=== PATIENT | female | born 1960 | race Two or more races ===

== ENCOUNTER → 2019-01-03 | Outpatient (CLI) | payer OTHER | END | disposition home or self-care (01) | LOC: SONOGRAMA 14:10 | DX: N95.0 Postmenopausal bleeding (principal) ==

== ENCOUNTER 2019-02-21 07:25 | Outpatient (CLI) | payer OTHER ==
[~2019-02-21] VITALS: Ht 172.7 cm; Wt 108.9 kg
== END 2019-02-21 12:51 | disposition home or self-care (01) ==
LOC: OFIC 805 07:25
DX: J31.0 Chronic rhinitis (principal); R22.1 Localized swelling, mass and lump, neck; J34.2 Deviated nasal septum

== ENCOUNTER 2019-02-21 10:28 | Outpatient (CLI) | payer OTHER | END 2019-02-21 10:34 | disposition home or self-care (01) | LOC: LAB 10:28 | DX: R22.1 Localized swelling, mass and lump, neck (principal) ==

== ENCOUNTER 2019-02-21 11:50 | Outpatient (CLI) | payer OTHER | END 2019-02-21 17:00 | disposition home or self-care (01) | LOC: SONOGRAMA 11:50 | DX: R22.1 Localized swelling, mass and lump, neck (principal) ==

== ENCOUNTER 2020-10-31 05:40 | Day surgery (SDC) | payer OTHER | END 2020-10-31 10:25 | disposition home or self-care (01) | LOC: CIR.AMB 05:40 | PROVIDERS: ATTEND Obstetrics & Gynecology | DX: N84.0 Polyp of corpus uteri (principal); Z20.822 Contact with and (suspected) exposure to COVID-19 ==

== ENCOUNTER 2022-05-31 20:01 | Emergency (ER) | payer OTHER ==
[~2022-05-31] VITALS: Ht 172.7 cm; Wt 113.4 kg
== END 2022-06-01 00:34 | disposition home or self-care (01) ==
LOC: ER 20:01
DX: S89.92XA Unspecified injury of left lower leg, initial encounter (principal); S89.91XA Unspecified injury of right lower leg, initial encounter; W10.9XXA Fall (on) (from) unspecified stairs and steps, initial encounter; Y93.9 Activity, unspecified; Y92.019 Unspecified place in single-family (private) house as the place of occurrence of the external cause; S49.92XA Unspecified injury of left shoulder and upper arm, initial encounter

== ENCOUNTER 2023-03-22 14:03 | Outpatient (CLI) | payer OTHER | END 2023-03-22 14:09 | disposition home or self-care (01) | LOC: SONOGRAMA 14:03 | PROVIDERS: ATTEND Obstetrics & Gynecology | DX: R10.2 Pelvic and perineal pain (principal) ==